=== PATIENT | female | born 1995 | race African-American/Black ===

== ENCOUNTER 2019-09-13 15:02 | Emergency (ER) | payer MEDICAID ==
[~2019-09-13] VITALS: Ht 160 cm; Wt 65.8 kg
[2019-09-13 15:11] VITALS: BP 132/80
--- NOTE | 2019-09-13 15:21 | NUR ---
Patient ambulated to bed 6. RN evaluating patient at bedside.
[2019-09-13 15:58] VITALS: BP 132/80
--- NOTE | 2019-09-13 15:58 | NUR ---
Patient discharged by Dr. Hermosillo with last v/s stable. Written and verbal after care instructions given and explained by Dr. Hermosillo. Patient alert, oriented and verbalized understanding of instructions. Ambulatory with steady gait. All questions addressed prior to discharge by Dr. Hermosillo. ID band removed by Dr. Hermosillo. Patient advised to follow up with PMD. Rx of macrobid given by Dr. Hermosillo. Patient educated on indication of medication including possible reaction and side effects by Dr. Hermosillo. Opportunity to ask questions provided and answered by Dr. Hermosillo.
--- NOTE | 2019-09-13 16:00 | NUR ---
PATIENT PRESENTS TO ED WITH MACROBID . PT STATES . DENIES N/V/D; SKIN IS PINK/WARM/DRY; AAOX4 WITH EVEN AND STEADY GAIT; LUNGS CLEAR BL; HR EVEN AND REGULAR; PT DENIES ANY FEVER, CP, SOB, OR COUGH AT THIS TIME; PATIENT STATES PAIN OF 0/10 AT THIS TIME; VSS; PATIENT POSITIONED FOR COMFORT; HOB ELEVATED; BEDRAILS UP X2; BED DOWN. ER MD MADE AWARE OF PT STATUS.
== END 2019-09-13 15:58 | disposition home or self-care (01) ==
LOC: MED 15:02
DX: N39.0 Urinary tract infection, site not specified (principal); R51 Headache; Z88.1 Allergy status to other antibiotic agents
CPT/HCPCS: 81002; 81025; 99283